=== PATIENT | male | born 1960 | race African-American/Black ===

== ENCOUNTER 2019-12-25 20:21 | Inpatient (IN) | payer MEDICARE, MEDICAID ==
[~2019-12-25] VITALS: Ht 175.3 cm; Wt 130.6 kg
[~2019-12-25 20:21] MED LIST: ASPI-986 PO; ATOR10TA PO; CLOP75TA4 PO; METO25TA6 PO
[2019-12-25] MEDS ORDERED: IBUPROFEN 600MG TABLET PO STA (21:25)
[2019-12-25 22:50] LABS: BASOPHILS % 0.2 % (0.0-2.0); EOSINOPHILS % 0.2 % (0.0-5.0); HEMATOCRIT. 40.2 % (42.0-52.0); HEMOGLOBIN. 13.3 g/dL (14.0-18.0); LYMPHOCYTES % 9.6 % (20.0-50.0); MEAN CORPUSCULAR HEMOGLOBIN 25.8 pg (28.0-32.0); MEAN CORPUSCULAR VOLUME 77.8 fL (80.0-94.0); MEAN PLATELET VOLUME 9.4 fl (7.4-10.4); MONOCYTES % 11.4 % (2.0-8.0); NEUTROPHILS % 78.6 % (40.0-76.0); PLATELET 134 x1000/uL (130-400); RED BLOOD CELL COUNT 5.16 mill/uL (4.7-6.1); RED CELL DISTRIBUTION WIDTH 21.8 % (11.6-14.6)
[2019-12-25 22:54] LABS: CHLORIDE 96 mEq/L (98-107)
[2019-12-25] MEDS ORDERED: METRONIDAZOLE 500 MG PREMIX 100 ML IV ONE (23:45)
[2019-12-25] MEDS ORDERED: CEFTRIAXONE 1 G PREMIX 50 ML IV ONE (23:45)
[2019-12-25] MEDS ORDERED: SODIUM CHLORIDE 0.9% 1,000 ML IV ONE (23:45)
[2019-12-25] MEDS ORDERED: ONDANSETRON HCL 4MG/2ML INJ IV STA (23:55)
[2019-12-25] MEDS ORDERED: MORPHINE SULFATE 4 MG/ML CPJ (NOT FOR IM USE) IV STA (23:55)
[2019-12-26 03:20] LABS: CLARITY URINE TURBID (CLEAR); COLOR URINE DARK YELLOW (YELLOW); KETONES URINE TRACE (NEGATIVE); LEUKOCYTE ESTERASE URINE 1+ (NEGATIVE); NITRITE URINE POSITIVE (NEGATIVE); OCCULT BLOOD URINE NEGATIVE (NEGATIVE); PROTEIN URINE 2+ (NEGATIVE); SPECIFIC GRAVITY URINE 1.024 (1.005-1.030)
[2019-12-26] MEDS ORDERED: METH4TAB17 PO (10:55)
[2019-12-26] MEDS ORDERED: CICL34.62 TP (10:55)
[2019-12-26] MEDS ORDERED: CLOP75TA33 MT (10:55)
[2019-12-26] MEDS ORDERED: CYCL25PO21 MT (10:55)
[2019-12-26] MEDS ORDERED: FLUO15CR2 TP (10:55)
[2019-12-26] MEDS ORDERED: VARE1TAB21 PO (10:55)
[2019-12-26] MEDS ORDERED: IBUP-2029 PO (10:55)
[2019-12-26] MEDS ORDERED: ATOR20TA65 MT (10:55)
[2019-12-26] MEDS ORDERED: CARV12.545 MT (10:55)
[2019-12-26 11:05] VITALS: BP 115/70
[2019-12-26] MEDS ORDERED: POTASSIUM CHLORIDE 20MEQ TABLET SR PO NR (11:15)
[2019-12-26] MEDS ORDERED: ONDANSETRON HCL 4MG/2ML INJ IV PRN (11:15)
[2019-12-26] MEDS ORDERED: ACETAMINOPHEN 325MG TABLET PO PRN (11:15)
[2019-12-26] MEDS: SODIUM CHLORIDE 0.9% 1,000 ML IV SCH (11:53)
[2019-12-26] MEDS: FOLIC ACID 1MG TABLET PO SCH (13:25)
[2019-12-26] MEDS: THIAMINE HCL 100MG TABLET PO SCH (13:25)
[2019-12-26] MEDS: METRONIDAZOLE 500 MG PREMIX 100 ML IV SCH ×2 (13:26→22:58)
[2019-12-26] MEDS ORDERED: IPRATROPIUM/ALBUTEROL 0.5-3(2.5)MG/3ML NEB HHN PRN (14:15)
[2019-12-26 15:43] LABS: BASOPHILS % 0.1 % (0.0-2.0); EOSINOPHILS % 0.7 % (0.0-5.0); HEMATOCRIT. 34.8 % (42.0-52.0); HEMOGLOBIN. 11.5 g/dL (14.0-18.0); LYMPHOCYTES % 7.5 % (20.0-50.0); MEAN CORPUSCULAR HEMOGLOBIN 25.8 pg (28.0-32.0); MEAN CORPUSCULAR VOLUME 78.4 fL (80.0-94.0); MEAN PLATELET VOLUME 9.7 fl (7.4-10.4); MONOCYTES % 14.6 % (2.0-8.0); NEUTROPHILS % 77.1 % (40.0-76.0); PLATELET 112 x1000/uL (130-400); RED BLOOD CELL COUNT 4.44 mill/uL (4.7-6.1); RED CELL DISTRIBUTION WIDTH 21.1 % (11.6-14.6)
[2019-12-26 15:55] LABS: CHLORIDE 102 mEq/L (98-107)
[2019-12-26] MEDS: ENOXAPARIN 40MG/0.4ML SYR SUBCUT SCH (16:18)
[2019-12-26 20:00] VITALS: BP 147/88
[2019-12-26 20:46] LABS: HEPATITIS B SURFACE ANTIGEN NEGATIVE
[2019-12-26] MEDS: CEFTRIAXONE 1 G PREMIX 50 ML IV SCH (20:55)
[2019-12-26 21:16] LABS: HEPATITIS A AB IGM NEGATIVE (NEGATIVE)
[2019-12-26 23:27] LABS: *AMPHETAMINES SCREEN URINE NEGATIVE (NEGATIVE); *BARBITURATES SCREEN URINE NEGATIVE (NEGATIVE); *BENZODIAZEPINES SCREEN URINE NEGATIVE (NEGATIVE); *COCAINE SCREEN URINE NEGATIVE (NEGATIVE); METHADONE URINE SCREEN NEGATIVE (NEGATIVE); OPIATES URINE SCREEN NEGATIVE (NEGATIVE)
[2019-12-26 23:28] LABS: CANNABINOID URINE SCREEN NEGATIVE (NEGATIVE); PHENCYCLIDINE URINE SCREEN NEGATIVE (NEGATIVE)
[2019-12-27] VITALS: BP 161/86
[2019-12-27] MEDS ORDERED: HYDRALAZINE HCL 50MG TABLET PO NR
[2019-12-27] MEDS: SODIUM CHLORIDE 0.9% 1,000 ML IV SCH (02:25)
[2019-12-27 04:00] VITALS: BP 126/62
[2019-12-27] MEDS: METRONIDAZOLE 500 MG PREMIX 100 ML IV SCH ×3 (06:28→22:09)
[2019-12-27 06:56] LABS: CHLORIDE 102 mEq/L (98-107)
[2019-12-27 07:04] LABS: BASOPHILS % 0.3 % (0.0-2.0); HEMATOCRIT. 33.1 % (42.0-52.0); HEMOGLOBIN. 10.7 g/dL (14.0-18.0); LYMPHOCYTES % 9.5 % (20.0-50.0); MEAN CORPUSCULAR HEMOGLOBIN 25.7 pg (28.0-32.0); MEAN CORPUSCULAR VOLUME 79.6 fL (80.0-94.0); MEAN PLATELET VOLUME 10.4 fl (7.4-10.4); MONOCYTES % 13.9 % (2.0-8.0); NEUTROPHILS % 75.3 % (40.0-76.0); PLATELET 106 x1000/uL (130-400); RED BLOOD CELL COUNT 4.16 mill/uL (4.7-6.1); RED CELL DISTRIBUTION WIDTH 21.9 % (11.6-14.6)
[2019-12-27 08:00] VITALS: BP 161/89
[2019-12-27] MEDS: ENOXAPARIN 40MG/0.4ML SYR SUBCUT SCH (08:58)
[2019-12-27] MEDS: MULTIVITAMINS,THER W-MINERALS TABLET PO SCH (08:59)
[2019-12-27] MEDS: METOPROLOL TARTRATE 50MG TABLET PO SCH ×2 (08:59→21:16)
[2019-12-27] MEDS: FOLIC ACID 1MG TABLET PO SCH (08:59)
[2019-12-27] MEDS: THIAMINE HCL 100MG TABLET PO SCH (08:59)
[2019-12-27 13:48] LABS: BG BASE EXCESS 0.4 mmol/L (-2.0-2.0); BG CARBOXYHEMOGLOBIN 0.2 % (0.5-1.5); BG DEOXYHEMOGLOBIN 4.3 % (0.0-5.0); BG HCO3 ACT 24.8 mmol/L (22.0-26.0); BG METHEMOGLOBIN 0.1 % (0.0-1.5); BG OXYGEN SATURATION 95.7 % (92.0-98.5); BG OXYHEMOGLOBIN 95.4 % (94.0-97.0); BG PCO2 38.9 mmHg (35.0-45.0); BG PH 7.422 (7.350-7.450); BG PO2 79.7 mmHg (75.0-100.0); BG SAMPLE SITE RIGHT RADIAL; BG TOTAL HEMOGLOBIN 11.2 g/dL (12.0-18.0); BG VENT MODE ROOM AIR
[2019-12-27] MEDS ORDERED: LIDOCAINE HCL/PF 1% 2ML VIAL ONE (13:59)
[2019-12-27 16:00] VITALS: BP 142/94
[2019-12-27] MEDS: HYDRALAZINE HCL 50MG TABLET PO SCH ×2 (16:00→22:09)
[2019-12-27 20:00] VITALS: BP 120/61
[2019-12-27] MEDS: CEFTRIAXONE 1 G PREMIX 50 ML IV SCH (21:18)
[2019-12-28] VITALS: BP 148/84
[2019-12-28] MEDS: SODIUM CHLORIDE 0.9% 1,000 ML IV SCH (01:30)
[2019-12-28 04:00] VITALS: BP 130/67
[2019-12-28] MEDS: HYDRALAZINE HCL 50MG TABLET PO SCH ×2 (05:04→15:03)
[2019-12-28] MEDS: METRONIDAZOLE 500 MG PREMIX 100 ML IV SCH ×2 (05:05→14:00)
[2019-12-28 08:00] VITALS: BP 127/66
[2019-12-28] MEDS: MULTIVITAMINS,THER W-MINERALS TABLET PO SCH (08:46)
[2019-12-28] MEDS: THIAMINE HCL 100MG TABLET PO SCH (08:46)
[2019-12-28] MEDS: METOPROLOL TARTRATE 50MG TABLET PO SCH (08:46)
[2019-12-28] MEDS: FOLIC ACID 1MG TABLET PO SCH (08:46)
[2019-12-28] MEDS: ENOXAPARIN 40MG/0.4ML SYR SUBCUT SCH (08:47)
[2019-12-28 12:00] VITALS: BP 99/70
[2019-12-28 15:25] VITALS: BP 133/85
== END 2019-12-28 15:58 | disposition home or self-care (01) | DRG 871 ==
LOC: ER 20:21 → MICUSO 12-26 00:18 → 6EST 12-26 09:42
PROVIDERS: ADMIT Internal Medicine; ATTEND Internal Medicine
DX: A41.9 Sepsis, unspecified organism (principal); K85.90 Acute pancreatitis without necrosis or infection, unspecified; E44.0 Moderate protein-calorie malnutrition; N39.0 Urinary tract infection, site not specified; N17.9 Acute kidney failure, unspecified; E87.1 Hypo-osmolality and hyponatremia; Z68.41 Body mass index [BMI] 40.0-44.9, adult; C61 Malignant neoplasm of prostate; J44.9 Chronic obstructive pulmonary disease, unspecified; D64.9 Anemia, unspecified; I25.2 Old myocardial infarction; I10 Essential (primary) hypertension; F10.10 Alcohol abuse, uncomplicated; F17.210 Nicotine dependence, cigarettes, uncomplicated; D69.6 Thrombocytopenia, unspecified; R74.0 Nonspecific elevation of levels of transaminase and lactic acid dehydrogenase [LDH]; Y90.9 Presence of alcohol in blood, level not specified; E66.9 Obesity, unspecified; E87.6 Hypokalemia; E86.0 Dehydration; Z86.73 Personal history of transient ischemic attack (TIA), and cerebral infarction without residual deficits; Z79.82 Long term (current) use of aspirin; Z79.899 Other long term (current) drug therapy; Z71.41 Alcohol abuse counseling and surveillance of alcoholic; Z71.6 Tobacco abuse counseling; Z91.19 Patient's noncompliance with other medical treatment and regimen; Z79.02 Long term (current) use of antithrombotics/antiplatelets; Z85.46 Personal history of malignant neoplasm of prostate
CPT/HCPCS: 36415; 36600; 71045; 74176; 76700; 80048; 80053; 80076; 80305; 81003; 82150; 82375; 82805; 85025; 86705; 86709; 86803; 87340; 93306; 93970; 96374; 99285; J0696; J1650; J2270; J2405; J3490; J7030